=== PATIENT | female | born 1985 | race Caucasian/White ===

== ENCOUNTER 2023-10-26 18:53 | Emergency (ER) | payer BC ==
[~2023-10-26 18:53] MED LIST: Iopamidol 370 76% 100 ML VIAL ONE
[2023-10-26] MEDS ORDERED: Ondansetron PF 4 MG/2 ML Vial ONE ×2 (19:26→23:14)
[2023-10-26] MEDS ORDERED: Sodium Chloride 0.9% 1,000 ML ONE ×2 (19:26→20:31)
[2023-10-26] MEDS ORDERED: Dicyclomine 20 MG/2 ML VIAL ONE (19:26)
[2023-10-26 19:37] LABS: Hematocrit 48.3 % (36.0-47.0); Mean Corpuscular Hemoglobin 28.4 pg (27.0-31.0); Mean Corpuscular Volume 91.5 fl (78.0-98.0); Mean Platelet Volume 7.2 fL (7.4-10.4); Platelet Count 298 10x3/uL (130-400); RBC Distribution Width 11.5 % (11.5-14.5); Red Blood Cell (RBC) Count 5.28 mill/uL (4.20-5.40); White Blood Cell (WBC) Count 16.6 10x3/uL (4.8-10.8)
[2023-10-26 19:46] LABS: Band 3 % (5-11); Lymphocytes 14 % (21-51); MDiff Complete? YES; Manual Diff?? YES; Monocytes 3 % (0-10); Neutrophil 80 % (42-75)
[2023-10-26 19:47] LABS: BHCG - Serum Negative (NEGATIVE); Platelet Adequacy Comment Appears Adequate; Pregs Control Background? CLEAR/WHITE (CLR/WHITE); Pregs Control Bar Appear? YES (CONTROL BAR); RBC Morph Comment Within Normal Limits
[2023-10-26 19:50] LABS: ALT (SGPT) 25 U/L (8-55); AST (SGOT) 26 U/L (5-34); Acetaminophen Less than 10 mcg/mL (10.0-30.0); Alcohol Less than 10.0 mg/dL (Less than 10); Alkaline Phosphatase 84 U/L (40-110); Anion Gap 23 mmol/L (10-20); BUN (Urea Nitrogen) 11 mg/dL (7.0-18.7); Bilirubin, Total 0.8 mg/dL (0.2-1.2); Calc. Creatinine Clearance 0 mL/min (70-130); Calcium 10.4 mg/dL (7.8-10.44); Carbon Dioxide 16 mmol/L (22-29); Chloride 105 mmol/L (98-107); Critical Call Chemistry N P; Estimated GFR 100; Globulin 3.7 g/dL (2.4-3.5); Glucose 125 mg/dL (70-105); Lipase 40 U/L (8-78); Potassium 4.4 mmol/L (3.5-5.1); Protein, Total 8.7 g/dL (6.0-8.3); Salicylate Less than 8.0 mg/dL (15.0-30.0); Sodium 140 mmol/L (136-145)
[2023-10-26] MEDS ORDERED: Morphine 4 MG/ML VIAL ONE (20:02)
[2023-10-26] MEDS ORDERED: Promethazine HCl 25 MG/ML VIAL ONE (20:03)
[2023-10-26] MEDS ORDERED: Piperacillin/Tazobactam 4.5 GM VIAL ONE (21:14)
[2023-10-26] MEDS ORDERED: Sodium Chloride 0.9% 100 ML ONE (21:15)
[2023-10-26] MEDS ORDERED: Sodium Chloride 0.9% 500 ML ONE (22:12)
[2023-10-26 22:28] LABS: Bilirubin Negative (Negative); Blood, Urine Negative (Negative); Clarity Clear (Clear); Glucose, Urine (Dipstick) Negative (Negative); Ketone, Urine 40 mg/dL (Negative); Leukocyte Negative (Negative); Nitrite Negative (Negative); Protein, Urine (Dipstick) Negative (Neg-Trace); Urobilinogen 0.2 mg/dL (Less than 2)
[2023-10-26 22:36] LABS: Amphetamine Not Detected (NotDetected); Barbiturates Screen Not Detected (NotDetected); Benzodiazepine Screen Not Detected (NotDetected); Cocaine Metabolite Screen Not Detected (NotDetected); Methadone Not Detected (NotDetected); Methamphetamine Not Detected (NotDetected); Opiate Screen Detected (NotDetected); Oxycodone Screen Not Detected (NotDetected); Phencyclidine (PCP) Not Detected (NotDetected); THC/Cannabinoid Screen Not Detected (NotDetected); Tricyclic Screen Detected (NotDetected)
[2023-10-26 22:38] LABS: RBC/HPF 0-3 HPF (0-3)
[2023-10-26 22:39] LABS: Bacteria/HPF Rare-Few HPF (None Seen); CAUTI Indications for Culture Pelvic or flank pain; Squamous Epithelial 0-3 HPF (0-3); Urine Culture Reflex No No; WBC/HPF 0-3 HPF (0-3)
[2023-10-26 23:15] LABS: Lactic Acid 1.1 mmol/L (0.5-2.2)
== END 2023-10-26 23:55 | disposition short-term general hospital (02) ==
LOC: EDSEX → MADERS 18:53
DX: R10.11 Right upper quadrant pain (principal); R11.2 Nausea with vomiting, unspecified; E78.00 Pure hypercholesterolemia, unspecified; Z55.6 Problems related to health literacy; Z79.899 Other long term (current) drug therapy
CPT/HCPCS: 74177; 80053; 80306; 80307; 81001; 82010; 83605; 83690; 84703; 85025; 87040; 93005; 96361; 96365; 96367; 96372; 96374; 96375; J2270; J2405; J2543; J2550; J7030; J7050; Q9967